=== PATIENT | female | born 1955 | race African-American/Black ===

== ENCOUNTER 2017-11-13 19:42 | Emergency (ER) | payer SELFPAY ==
[~2017-11-13] VITALS: Ht 160 cm; Wt 93.0 kg
[2017-11-13] MEDS ORDERED: TETANUS, DIPHTHERIA, PERTUSSIS VAC/PF 0.5ML (>7YR OLD) IM ONE (21:15)
[2017-11-13] MEDS ORDERED: AMOXICILLIN/POTASSIUM CLAVULANATE 875/125MG TAB PO ONE (21:15)
[2017-11-13] MEDS ORDERED: TRAMADOL 50MG TABLET PO ONE (21:15)
[2017-11-13 22:18] VITALS: BP 146/89
== END 2017-11-13 22:19 | disposition home or self-care (01) ==
LOC: ER 21:01
DX: S81.851A Open bite, right lower leg, initial encounter (principal); I10 Essential (primary) hypertension; W54.0XXA Bitten by dog, initial encounter; Y93.01 Activity, walking, marching and hiking; Y92.89 Other specified places as the place of occurrence of the external cause; Y99.8 Other external cause status; Z88.5 Allergy status to narcotic agent; Z88.0 Allergy status to penicillin; Z98.890 Other specified postprocedural states
CPT/HCPCS: 90471; 90715; 99283

== ENCOUNTER 2017-11-17 08:34 | Emergency (ER) | payer SELFPAY ==
[~2017-11-17] VITALS: Ht 162.6 cm; Wt 91.0 kg
[2017-11-17 08:37] VITALS: BP 122/82
[2017-11-17] MEDS ORDERED: BACITRACIN ZINC OINT UDPKT TOP ONE (09:00)
== END 2017-11-17 09:50 | disposition home or self-care (01) ==
LOC: ER 09:42
DX: Z48.00 Encounter for change or removal of nonsurgical wound dressing (principal)
CPT/HCPCS: 99283